=== PATIENT | female | born 1960 | race Caucasian/White ===

== ENCOUNTER 2017-07-21 16:46 | Emergency (ER) | payer MEDICAID, MEDICARE ==
[~2017-07-21] VITALS: Ht 162.6 cm; Wt 56.8 kg
[2017-07-21 16:52] VITALS: TEMP 99.5
[2017-07-21] MEDS ORDERED: PRILOSEC 20MG20 MG PO (17:01)
[2017-07-21] MEDS ORDERED: ZIAC 10/6.25M1 UDTAB PO (17:02)
[2017-07-21] MEDS ORDERED: ASPIRIN 32325 MG/TAB PO (17:02)
[2017-07-21] MEDS ORDERED: CLARITIN 1010 MG/TAB PO (17:02)
[2017-07-21] MEDS ORDERED: CORICIDIN HBP1 EAC1 PO (17:03)
[2017-07-21] MEDS ORDERED: MONODOX100 PO (18:16)
[2017-07-21 18:25] VITALS: BP 120/68; PULSE 89
== END 2017-07-21 18:34 | disposition home or self-care (01) ==
LOC: COL.ER 16:46
DX: J18.1 Lobar pneumonia, unspecified organism (principal); I10 Essential (primary) hypertension; F17.210 Nicotine dependence, cigarettes, uncomplicated; K21.9 Gastro-esophageal reflux disease without esophagitis; Z98.890 Other specified postprocedural states; Z79.82 Long term (current) use of aspirin

== ENCOUNTER 2018-05-27 19:04 | Emergency (ER) | payer MEDICARE, MEDICAID ==
[~2018-05-27] VITALS: Ht 162.6 cm; Wt 56.8 kg
[~2018-05-27 19:04] MED LIST: ASPIRIN 32325 MG/TAB PO; CLARITIN 1010 MG/TAB PO; CORICIDIN HBP1 EAC1 PO; MONODOX100 PO; PRILOSEC 20MG20 MG PO; ZIAC 10/6.25M1 UDTAB PO
[2018-05-27 19:12] VITALS: TEMP 98
[2018-05-27 19:32] LABS: BASO # 0.1 (0.0-0.2); BASO % 0.5 % (0.0-2.0); EOS # 0.2 (0.0-0.7); EOS % 1.6 % (0-4.0); GRAN # 6.1 (1.4-6.5); HEMATOCRIT 38.8 % (37.0-47.0); HEMOGLOBIN 13.1 g/dl (12.5-16.0); LYMPH # 3.4 (1.2-3.4); MEAN CELL VOLUME 86 fl (80.0-100.0); MEAN CORPUSCULAR HEMOGLOBIN 29 pg (27.0-31.0); MEAN CORPUSCULAR HGB CONC 34 g/dl (33.0-37.0); MEAN PLATELET VOLUME 10.3 fl (7.4-10.4); MONO # 0.4 (0.1-0.6); MONO % 3.7 % (1.7-9.3); PLATELET COUNT 176 K/mm3 (130-400); RED BLOOD COUNT 4.49 M/mm3 (4.10-5.30); REDCELL DISTRIBUTION WIDTH-CV 13.1 % (11.5-14.5)
[2018-05-27 19:41] LABS: ALANINE AMINOTRANSFERASE 10 U/L (9-52); ALKALINE PHOSPHATASE 92 U/L (50-136); ANION GAP 7 mmol/L (7-16); AST,SGOT 22 U/L (15-37); BILIRUBIN,TOTAL 0.4 mg/dL (0.0-1.0); BLOOD UREA NITROGEN 12 mg/dL (7-17); CALCIUM 9.3 mg/dL (8.4-10.2); CARBON DIOXIDE 29 mmol/L (22-30); CHLORIDE 103 mmol/L (98-107); CREATINE KINASE 90 U/L (30-135); GLUCOSE 100 mg/dL (74-106); LIPASE 53 U/L (23-300); POTASSIUM 3.5 mmol/L (3.4-5.0); SODIUM 139 mmol/L (137-145); TOTAL PROTEIN 6.8 gm/dL (6.4-8.2)
[2018-05-27 19:56] LABS: TROPONIN-I < 0.012 ng/mL (0.000-0.035)
[2018-05-27 22:06] VITALS: BP 146/84; PULSE 74
== END 2018-05-27 22:16 | disposition home or self-care (01) ==
LOC: COL.ER 19:04
PROVIDERS: Emergency Medicine
DX: R07.89 Other chest pain (principal); I10 Essential (primary) hypertension; K21.9 Gastro-esophageal reflux disease without esophagitis; F17.210 Nicotine dependence, cigarettes, uncomplicated; Z90.89 Acquired absence of other organs
CPT/HCPCS: J1200; J1885

== ENCOUNTER 2018-09-24 16:48 | Emergency (ER) | payer OTHER ==
[~2018-09-24] VITALS: Ht 162.6 cm; Wt 57.3 kg
[2018-09-24 16:51] VITALS: TEMP 98.4
[2018-09-24 17:12] LABS: HEMOGLOBIN 13.4 g/dl (12.5-16.0); MEAN CELL VOLUME 88 fl (80.0-100.0); MEAN CORPUSCULAR HEMOGLOBIN 29 pg (27.0-31.0); MEAN CORPUSCULAR HGB CONC 34 g/dl (33.0-37.0); MEAN PLATELET VOLUME 10.7 fl (7.4-10.4); PLATELET COUNT 160 K/mm3 (130-400); RED BLOOD COUNT 4.57 M/mm3 (4.10-5.30); REDCELL DISTRIBUTION WIDTH-CV 13.2 % (11.5-14.5)
[2018-09-24] MEDS ORDERED: ZIAC 10/6.25M1 UDTAB PO (17:16)
[2018-09-24 17:18] LABS: INR 0.9 (0.8-3.0); PROTHROMBIN TIME 10.6 SECONDS (9.7-12.8)
[2018-09-24 17:21] LABS: ALANINE AMINOTRANSFERASE 8 U/L (9-52); ALKALINE PHOSPHATASE 91 U/L (50-136); ANION GAP 9 mmol/L (7-16); AST,SGOT 21 U/L (15-37); BILIRUBIN,TOTAL 0.5 mg/dL (0.0-1.0); BLOOD UREA NITROGEN 11 mg/dL (7-17); CALCIUM 9.2 mg/dL (8.4-10.2); CARBON DIOXIDE 23 mmol/L (22-30); CHLORIDE 108 mmol/L (98-107); CREATININE, serum 0.83 (0.52-1.25); GLUCOSE 89 mg/dL (74-106); LIPASE 57 U/L (23-300); POTASSIUM 4.1 mmol/L (3.4-5.0); SODIUM 140 mmol/L (137-145); TOTAL PROTEIN 7.1 gm/dL (6.4-8.2)
[2018-09-24 17:33] LABS: TROPONIN-I < 0.012 ng/mL (0.000-0.035)
[2018-09-24 17:39] LABS: BAND 1 % (0-10); EOSINOPHIL 3 % (0-4); LYMPHOCYTE 42 % (20.0-51.0); NEUTROPHILS 49 % (42.0-75.2); PLATELET ESTIMATE NORMAL (NORMAL)
[2018-09-24] MEDS ORDERED: PEPCID 20MG TAB20 MG PO (20:38)
[2018-09-24 20:52] VITALS: BP 156/90; PULSE 68
== END 2018-09-24 20:54 | disposition home or self-care (01) ==
LOC: COL.ER 16:48
PROVIDERS: Emergency Medicine
DX: K29.70 Gastritis, unspecified, without bleeding (principal); K21.9 Gastro-esophageal reflux disease without esophagitis; I10 Essential (primary) hypertension; F17.210 Nicotine dependence, cigarettes, uncomplicated; Z79.82 Long term (current) use of aspirin

== ENCOUNTER 2018-12-12 20:51 | Emergency (ER) | payer MEDICARE, MEDICAID ==
[~2018-12-12] VITALS: Ht 162.6 cm; Wt 56.8 kg
[~2018-12-12 20:51] MED LIST changes: +PEPCID 20MG TAB20 MG PO
[2018-12-12 20:58] VITALS: BP 134/85
[2018-12-12 22:07] VITALS: TEMP 98.5
[2018-12-12] MEDS ORDERED: FLEXERIL 1010 MG/TAB PO (22:54)
[2018-12-12] MEDS ORDERED: NORCO 325 MG-51 TAB PO (22:54)
[2018-12-12 23:28] VITALS: PULSE 91
== END 2018-12-12 23:28 | disposition home or self-care (01) ==
LOC: COL.ER 20:51
DX: M25.512 Pain in left shoulder (principal); M54.2 Cervicalgia; I10 Essential (primary) hypertension; F17.210 Nicotine dependence, cigarettes, uncomplicated; Z79.82 Long term (current) use of aspirin
CPT/HCPCS: J3010

== ENCOUNTER → 2019-02-19 | Outpatient (CLI) | payer MEDICARE, MEDICAID ==
[~2019-02-19] MED LIST changes: +FLEXERIL 1010 MG/TAB PO; +NORCO 325 MG-51 TAB PO; +PROAIR HFA0.09 MG/AC IH
== END ==
LOC: MC.RAD 10:42
DX: N63.10 Unspecified lump in the right breast, unspecified quadrant (principal)
CPT/HCPCS: G0279